=== PATIENT | male | born 1985 | race African-American/Black ===

== ENCOUNTER 2021-01-20 05:21 | Emergency (ER) | payer SELFPAY ==
[~2021-01-20] VITALS: Ht 167.6 cm; Wt 100.0 kg
[2021-01-20] MEDS ORDERED: IV NORMAL SALINE 1000ML BAG 1,000 ML IV SCH (05:45)
[2021-01-20 06:12] LABS: BASO # 0.1 x10^3/uL (0.0-0.2); BASO % 1 % (0-3); EOS # 0.1 x10^3/uL (0.0-0.7); EOS % 1 % (0-3); HEMATOCRIT 39.4 % (39.0-53.0); HEMOGLOBIN 12.6 g/dL (13.0-17.5); LYMPH # 3.8 x10^3/uL (1.0-4.8); LYMPH % 38 % (24-48); MEAN CORPUSCULAR HEMOGLOBIN 27 pg (25-35); MEAN CORPUSCULAR HGB CONC 32 g/dL (31-37); MEAN CORPUSCULAR VOLUME 84 fL (79-100); MONO # 0.6 x10^3/uL (0.0-1.1); MONO % 6 % (0-9); NEUT # 5.5 x10^3/uL (1.8-7.7); NEUT % 55 % (31-73); PLATELET COUNT 157 x10^3/uL (140-400); RED BLOOD COUNT 4.69 x10^6/uL (4.30-5.70); RED CELL DISTRIBUTION WIDTH 13.1 % (11.5-14.5)
--- NOTE | 2021-01-20 06:14 | EKG ---
[facility] [address] [place] [address] Test Date: 2021-01-20 Test Time: 05:50:27 Pat Name: KELVIN ZHAO Department: Room: Gender: M Claim Representative: : 1985 Requested By: EDD RODARTE Order Number: [id number] Reading MD: Measurements Intervals [place] Rate: 93 P: 45 MN: 160 QRS: 28 QRSD: 86 T: 20 QT: 350 QTc: 438 Interpretive Statements SINUS RHYTHM OTHERWISE NORMAL ECG RI6.02 No previous ECG available for comparison
[2021-01-20 06:24] LABS: CALCIUM 8.2 mg/dL (8.5-10.1); CREATININE 1.1 mg/dL (0.7-1.3); GFR 75.3; POTASSIUM 3.3 mmol/L (3.5-5.1)
[2021-01-20 06:31] LABS: ALBUMIN 3.8 g/dL (3.4-5.0); ALBUMIN/GLOBULIN RATIO 1.2 (1.0-1.7); TOTAL BILIRUBIN 0.4 mg/dL (0.2-1.0); TOTAL PROTEIN 6.9 g/dL (6.4-8.2)
--- NOTE | 2021-01-20 06:33 | PHYS DOC ---
Adult General Chief Complaint Chief Complaint: SEIZURE HPI HPI Patient is a 35 year old male who denies any significant past medical history presents emergency department for seizure-like episode. Critical patient and h is that they were in the middle of having intercourse with the patient locked up. The describes the episode as patient being stiff with shaking behavior throughout the entire body, unresponsiveness and eyes rolled in the back of his head and states that he was biting his tongue. No bowel or bladder incontinence. Patient states that prior to the episode he noted he was having a right-sided headache that has lasted all day yesterday and is currently complaining of headache but denies any other symptoms. No reported extremity numbness, vision changes at this time, current nausea or vomiting. Denies any history of similar symptoms. Denies any drug or alcohol use Review of Systems Review of Systems Constitutional: Denies fever or chills [] Eyes: Denies change in visual acuity, redness, or eye pain [] HENT: Denies nasal congestion or sore throat [] Respiratory: Denies cough or shortness of breath [] Cardiovascular: No additional information not addressed in HPI [] GI: Denies abdominal pain, nausea, vomiting, bloody stools or diarrhea [] : Denies dysuria or hematuria [] Musculoskeletal: Denies back pain or joint pain [] Integument: Denies rash or skin lesions [] Neurologic: Denies headache, focal weakness or sensory changes [] Endocrine: Denies polyuria or polydipsia [] All other systems were reviewed and found to be within normal limits, except as documented in this note. Current Medications Current Medications Current Medications Medications (Trade) Dose Ordered Sig/Valerio Start Time Stop Time Status Last Admin Dose Admin Acetaminophen (Tylenol) 1,000 mg 1X ONCE 01/20/21 07:00 01/20/21 07:01 DC Iohexol (Omnipaque 300 Mg/ml) 75 ml 1X ONCE 01/20/21 07:45 01/20/21 07:46 DC Morphine Sulfate (Morphine Sulfate) 4 mg 1X ONCE 01/20/21 07:15 01/20/21 07:16 DC 01/20/21 07:28 4 MG Sodium Chloride 1,000 ml @ 1,000 mls/hr Q1H 01/20/21 05:45 01/20/21 06:44 DC 01/20/21 06:01 1,000 MLS/HR Allergies Allergies Allergies Coded Allergies Type Severity Reaction Last Updated Verified No Known Drug Allergies 01/20/21 No Physical Exam Physical Exam Constitutional: Well developed, well nourished, no acute distress, non-toxic appearance. [] HENT: Normocephalic, atraumatic, bilateral external ears normal, oropharynx moist, no oral exudates, nose normal. [] Eyes: PERRLA, EOMI, conjunctiva normal, no discharge. [] Neck: Normal range of motion, no tenderness, supple, no stridor. [] Cardiovascular:Heart rate regular rhythm, no murmur [] Lungs & Thorax: Bilateral breath sounds clear to auscultation [] Abdomen: Bowel sounds normal, soft, no tenderness, no masses, no pulsatile masses. [] Skin: Warm, dry, no erythema, no rash. [] Back: No tenderness, no CVA tenderness. [] Extremities: No tenderness, no cyanosis, no clubbing, ROM intact, no edema. [] Neurologic: Alert and oriented X 3, normal motor function, normal sensory function, no focal deficits noted. [] Psychologic: Affect normal, judgement normal, mood normal. [] Current Patient Data Vital Signs Vital Signs Date Time Temp Pulse Resp B/P (MAP) Pulse Ox O2 Delivery O2 Flow Rate FiO2 01/20/21 07:28 20 99 Room Air 01/20/21 06:55 103 01/20/21 06:10 154/90 (111) 01/20/21 05:21 98.6 98.6 Lab Values Laboratory Tests Test 01/20/21 05:55 White Blood Count 10.0 x10^3/uL (4.0-11.0) Red Blood Count 4.69 x10^6/uL (4.30-5.70) Hemoglobin 12.6 g/dL (13.0-17.5) L Hematocrit 39.4 % (39.0-53.0) Mean Corpuscular Volume 84 fL (79-100) Mean Corpuscular Hemoglobin 27 pg (25-35) Mean Corpuscular Hemoglobin Concent 32 g/dL (31-37) Red Cell Distribution Width 13.1 % (11.5-14.5) Platelet Count 157 x10^3/uL (140-400) Neutrophils (%) (Auto) 55 % (31-73) Lymphocytes (%) (Auto) 38 % (24-48) Monocytes (%) (Auto) 6 % (0-9) Eosinophils (%) (Auto) 1 % (0-3) Basophils (%) (Auto) 1 % (0-3) Neutrophils # (Auto) 5.5 x10^3/uL (1.8-7.7) Lymphocytes # (Auto) 3.8 x10^3/uL (1.0-4.8) Monocytes # (Auto) 0.6 x10^3/uL (0.0-1.1) Eosinophils # (Auto) 0.1 x10^3/uL (0.0-0.7) Basophils # (Auto) 0.1 x10^3/uL (0.0-0.2) Prothrombin Time 11.9 SEC (11.7-14.0) Prothrombin Time INR 0.9 (0.8-1.1) Activated Partial Thromboplast Time 25 SEC (24-38) Sodium Level 143 mmol/L (136-145) Potassium Level 3.3 mmol/L (3.5-5.1) L Chloride Level 105 mmol/L (98-107) Carbon Dioxide Level 26 mmol/L (21-32) Anion Gap 12 (6-14) Blood Urea Nitrogen 11 mg/dL (8-26) Creatinine 1.1 mg/dL (0.7-1.3) Estimated GFR (Cockcroft-Gault) 75.3 BUN/Creatinine Ratio 10 (6-20) Glucose Level 238 mg/dL (70-99) H Calcium Level 8.2 mg/dL (8.5-10.1) L Magnesium Level 2.0 mg/dL (1.8-2.4) Total Bilirubin 0.4 mg/dL (0.2-1.0) Aspartate Amino Transferase (AST) 32 U/L (15-37) Alanine Aminotransferase (ALT) 48 U/L (16-63) Alkaline Phosphatase 114 U/L (46-116) Creatine Kinase 160 U/L (39-308) Troponin I Quantitative < 0.017 ng/mL (0.000-0.055) Total Protein 6.9 g/dL (6.4-8.2) Albumin 3.8 g/dL (3.4-5.0) Albumin/Globulin Ratio 1.2 (1.0-1.7) Lipase 208 U/L (73-393) Laboratory Tests 01/20/21 05:55 Laboratory Tests 01/20/21 05:55 EKG EKG [] Radiology/Procedures Radiology/Procedures [] Course & Med Decision Making Course & Med Decision Making Pertinent Labs and Imaging studies reviewed. (See chart for details) 35M presented emergency department with report of new onset of seizure-like activity tonic-clonic with right-sided headache. In addition to obtaining labs to make sure there is no evidence of metabolic derangement that can lead to seizure-like activity will obtain x-rays and a CT scan of the head to make sure there is no significant intracranial pathology. 06:55 - CT head obtained and I reviewed myself and there is concern for acute R ICH. I asked again and unsure of fall, trauma alert activated, pt still GCS 15 and blood pressure is WNL. Awaiting radiology read and will obtain surgical consultation. 07:02 - radiology confirmation of significant R intraparenchymal hemorrhage likely due to ruptured aneurysm. Neurosurgery consultation states they cannot repair this here and are recommending transfer. 07:11 - called transfer center requesting emergent transfer for acute ICH. Pt remains stable. Awaiting return call. Pt BP stable, still no neuro deficits. 07:26 - [facility] called, requesting CTA before accepting patient for transfer. 08:05 - radiologist called regarding CTA, noted 3mm R MCA aneurysm. Called back [facility] and awaiting acceptance. 08:09 - care accepted by Dr. Ulrich at . Will arrange transfer by julián joshi. Izabella Disclaimer Izabella Disclaimer This electronic medical record was generated, in whole or in part, using a voice recognition dictation system. Departure Departure Impression: Primary Impression: Intraparenchymal hematoma of brain Additional Impression: Subarachnoid hemorrhage Disposition: 02 [facility] Condition: GOOD Problem Qualifiers BEAU PRIETO MD Jan 20, 2021 06:33
--- NOTE | 2021-01-20 06:41 | RAD ---
Single view chest dated 01/20/2021: No comparison available. Clinical Indication: Seizure. Findings: Single upright portable exam of the chest was performed. Heart size and mediastinal contours are with in normal limits given technique. The lungs are clear without evidence of focal consolidation. Vascul ar interstitium is within normal limits. Impression:: No acute radiographic abnormality. Electronically signed by: Aldair Pollock MD (01/20/2021 6:38 AM) JENNIFER
[2021-01-20] MEDS ORDERED: ACETAMINOPHEN 500 MG TABLET PO ONE (07:00)
--- NOTE | 2021-01-20 07:10 | RAD ---
CT head without contrast dated 01/20/2021. No comparison available. CLINICAL INDICATION: Seizure. TECHNIQUE: Contiguous axial imaging the head was performed from skull base to vertex. No contrast administered. One or more of the following individualized dose reduction techniques were utilized for this examinat ion: 1. Automated exposure control 2. Adjustment of the mA and/or kV according to patient size 3. Use of iterative reconstruction technique. FINDINGS: There is a focal zone of high density in the right temporal lobe that measures up to 2.7 cm. There is also a linear high density extending the sylvian fissure with small amount of subarachnoid hemorrhag e in the right frontotemporal region and right basilar cisterns. There is mild mass effect upon the r ight lateral ventricle with effacement of the temporal horn. Brain parenchyma is otherwise of normal attenuation. Visualized paranasal sinuses and mastoid air cells are clear. No apparent calvarial abnormality. IMPRESSION: 1. Focal hematoma at the inferior right temporal lobe with associated subarachnoid hemorrhage. Etiolo gy is indeterminate and could represent a ruptured aneurysm or less likely a hemorrhagic mass or post traumatic hemorrhage. MRI with and without contrast to better evaluate. CTA could also provide additi onal information. Results discussed with ER physician at approximate 7:05 AM on the day of study. Electronically signed by: Aldair Pollock MD (01/20/2021 7:08 AM) [facility]
[2021-01-20] MEDS ORDERED: MORPHINE SULFATE 4 MG/ML VIAL. IV ONE (07:15)
[2021-01-20 07:36] LABS: PROTHROMBIN TIME PATIENT 11.9 SEC (11.7-14.0)
[2021-01-20] MEDS ORDERED: IOHEXOL 300 MG/ML 100ML VIAL. IV ONE (07:45)
--- NOTE | 2021-01-20 08:07 | RAD ---
RS Compliance Statement: One or more of the following individualized dose reduction techniques were utilized for this examinat ion: 1. Automated exposure control 2. Adjustment of the mA and/or kV according to patient size 3. Use of iterative reconstruction technique CTA STROKE HEAD/NECK w/o Clinical Indication: Reason: ICH. IV OMNI 300 75 MLS / Spl. Instructions: / History: Comparison: CT head without contrast, earlier same day. Findings: There is a 3 x 3 x 3 mm of the right middle cerebral artery, M2 segment, image 896 of series 4. The a neurysm is at the posterior superior margin of the right temporal lobe hematoma. The anterior circula tion is otherwise intact. Aortic arch branches are patent. Common carotid arteries, carotid bifurcations, and cervical internal carotid arteries are normal. The cervical vertebral arteries are normal. The posterior circulation i s intact. Dural venous sinuses are intact. No cervical adenopathy. Minimal atelectasis in the posterior upper l obes bilaterally. Cervical spine alignment is maintained. Mild degenerative endplate spurring. Paroti d, submandibular, and thyroid glands are symmetric. IMPRESSION: 1. There is a 3 mm aneurysm of the right middle cerebral artery. Suggest conventional angiography. 2. Redemonstrated right temporal lobe hematoma and subarachnoid hemorrhage. There is no significant increase in size of the right temporal lobe hematoma. 3. Normal CTA neck. FOR INTERNAL CODING PURPOSES Critical result: Findings discussed with Dr. Gastelum in the ED at 01/20/2021 8:00 AM. RESULT CODE: (C) Electronically signed by: Franko Kilpatrick MD (01/20/2021 8:05 AM) [id number]
[2021-01-20 08:25] VITALS: BP 161/90
== END 2021-01-20 08:40 | disposition short-term general hospital (02) ==
LOC: ER 05:21
DX: I60.9 Nontraumatic subarachnoid hemorrhage, unspecified (principal); R56.9 Unspecified convulsions; Z20.822 Contact with and (suspected) exposure to COVID-19
CPT/HCPCS: 36415; 70450; 70496; 70498; 71045; 80053; 82550; 83690; 83735; 84484; 85025; 85610; 85730; 87426; 93005; 96361; 96374; 99285; J2270; J7030; Q9967; U0003; U0005